=== PATIENT | male | born 1935 | race Caucasian/White ===

== ENCOUNTER 2018-08-14 10:24 | Inpatient (IN) | payer MEDICARE, MEDICAID ==
[~2018-08-14] VITALS: Ht 177.8 cm; Wt 79.6 kg
[~2018-08-14 10:24] MED LIST: HYDR-4005 PO; LISI40TA4 PO; METO100T16 PO; MINO2.5T19 GT; TEMA15CA PO; TRAZ-212 PO
[2018-08-14] MEDS ORDERED: METHYLPREDNISOLONE SOD SUCC 125 MG/2 ML VIAL IV STA (10:32)
[2018-08-14] MEDS ORDERED: ALBUTEROL (0.083%) 2.5MG/3ML NEB HHN STA (10:32)
[2018-08-14] MEDS ORDERED: IPRATROPIUM BROMIDE (0.02%) 0.5MG/2.5ML NEB HHN STA (10:32)
[2018-08-14 10:49] LABS: HEMATOCRIT. 34.9 % (42.0-52.0); HEMOGLOBIN. 12.1 g/dL (14.0-18.0); MEAN CORPUSCULAR HEMOGLOBIN 31.3 pg (28.0-32.0); MEAN CORPUSCULAR VOLUME 90.4 fL (80.0-94.0); MEAN PLATELET VOLUME 7.5 fl (7.4-10.4); PLATELET 159 x1000/uL (130-400); RED BLOOD CELL COUNT 3.86 mill/uL (4.7-6.1); RED CELL DISTRIBUTION WIDTH 14.7 % (11.6-14.6)
[2018-08-14 10:57] LABS: CHLORIDE 94 mEq/L (98-107)
[2018-08-14] MEDS ORDERED: METOPROLOL TARTRATE 5MG/5ML VIAL IV ONE (11:00)
[2018-08-14 11:31] LABS: PLATELET ESTIMATE NORMAL
[2018-08-14 11:41] LABS: BG BASE EXCESS 1.1 mmol/L (-2.0-2.0); BG CARBOXYHEMOGLOBIN 1.1 % (0.5-1.5); BG DEOXYHEMOGLOBIN 4.3 % (0.0-5.0); BG HCO3 ACT 24.5 mmol/L (22.0-26.0); BG METHEMOGLOBIN 0.1 % (0.0-1.5); BG OXYGEN SATURATION 95.6 % (92.0-98.5); BG OXYHEMOGLOBIN 94.5 % (94.0-97.0); BG PCO2 35.2 mmHg (35.0-45.0); BG PH 7.461 (7.350-7.450); BG PO2 78.3 mmHg (75.0-100.0); BG SAMPLE SITE RIGHT RADIAL; BG TOTAL HEMOGLOBIN 12.6 g/dL (12.0-18.0)
[2018-08-14] MEDS ORDERED: PIPERACILLIN/TAZOBACTAM 3.375GM/50ML PREMIX IV ONE (12:15)
[2018-08-14] MEDS ORDERED: PIPERACILLIN/TAZ 3.375G PREMIX 50 ML IV ONE (12:30)
[2018-08-14 15:43] VITALS: BP 122/72
[2018-08-14 16:00] VITALS: BP 138/78
[2018-08-14] MEDS ORDERED: DEXTROSE 50% WATER 50ML SYRINGE IV PRN ×2 (16:45)
[2018-08-14] MEDS ORDERED: IPRATROPIUM/ALBUTEROL 0.5-3(2.5)MG/3ML NEB HHN PRN (16:45)
[2018-08-14] MEDS: BLOOD SUGAR DIAGNOSTIC STRIP TEST SCH ×2 (17:19→20:24)
[2018-08-14] MEDS: ENOXAPARIN 40MG/0.4ML SYR SUBCUT SCH (17:23)
[2018-08-14] MEDS: INSULIN LISPRO 100 UNITS/ML SUBCUT SCH ×2 (17:23→20:25)
[2018-08-14 18:00] VITALS: BP 112/57
[2018-08-14 20:00] VITALS: BP 98/49
[2018-08-14] MEDS: IPRATROPIUM/ALBUTEROL 0.5-3(2.5)MG/3ML NEB HHN SCH ×2 (20:11→23:57)
[2018-08-14] MEDS ORDERED: HYDROCODONE/ACETAMINOPHEN 5/325MG TABLET PO PRN (20:15)
[2018-08-14] MEDS: PIPERACILLIN/TAZ 2.25G PREMIX 50 ML IV SCH (20:24)
[2018-08-14] MEDS: SODIUM CHLORIDE 0.9% 1,000 ML IV SCH (20:26)
[2018-08-14] MEDS: CARVEDILOL 6.25 MG TABLET PO SCH (20:32)
[2018-08-14 21:47] LABS: INR 1.4; PARTIAL THROMBOPLASTIN TIME 44.1 sec (23.4-31.0); PROTHROMBIN TIME 13.9 sec (9.1-11.1)
[2018-08-14 22:00] VITALS: BP 100/50
[2018-08-14] MEDS ORDERED: DILTIAZEM HCL 60MG TABLET PO SCH (22:00)
[2018-08-15] VITALS (26 sets, daily range): BP systolic 76–118; BP diastolic 25–75
[2018-08-15] MEDS: IPRATROPIUM/ALBUTEROL 0.5-3(2.5)MG/3ML NEB HHN SCH ×5 (02:05→15:10)
[2018-08-15] MEDS: PIPERACILLIN/TAZ 2.25G PREMIX 50 ML IV SCH ×2 (03:19→08:01)
[2018-08-15] MEDS: BLOOD SUGAR DIAGNOSTIC STRIP TEST SCH ×4 (05:42→21:20)
[2018-08-15 05:46] LABS: CHLORIDE 99 mEq/L (98-107)
[2018-08-15 06:01] LABS: LDL CHOLESTEROL 48 mg/dL (5-100)
[2018-08-15 06:02] LABS: HDL CHOLESTEROL 33 mg/dL (40-59)
[2018-08-15 06:11] LABS: HEMATOCRIT. 29.3 % (42.0-52.0); HEMOGLOBIN. 10.4 g/dL (14.0-18.0); MEAN CORPUSCULAR HEMOGLOBIN 31.9 pg (28.0-32.0); MEAN CORPUSCULAR VOLUME 90.3 fL (80.0-94.0); PLATELET 131 x1000/uL (130-400); RED BLOOD CELL COUNT 3.24 mill/uL (4.7-6.1); RED CELL DISTRIBUTION WIDTH 14.7 % (11.6-14.6)
[2018-08-15] MEDS: INSULIN LISPRO 100 UNITS/ML SUBCUT SCH ×4 (07:57→21:22)
[2018-08-15] MEDS: CARVEDILOL 6.25 MG TABLET PO SCH (08:01)
[2018-08-15] MEDS: ASPIRIN 81MG TABLET PO SCH (08:01)
[2018-08-15] MEDS ORDERED: VANCOMYCIN 1,750 MG in DEXT 5% WATER 250 ML IV SCH (13:00)
[2018-08-15] MEDS: DILTIAZEM HCL 60MG TABLET PO SCH ×3 (13:14→22:00)
[2018-08-15 13:26] LABS: PLATELET ESTIMATE NORMAL
[2018-08-15] MEDS ORDERED: DIGOXIN 500MCG/2ML AMP IV NR (14:55)
[2018-08-15] MEDS ORDERED: DIGOXIN 500MCG/2ML AMP ONE (15:05)
[2018-08-15 15:06] LABS: BG BASE EXCESS -3.7 mmol/L (-2.0-2.0); BG CARBOXYHEMOGLOBIN 0.6 % (0.5-1.5); BG DEOXYHEMOGLOBIN 2.6 % (0.0-5.0); BG HCO3 ACT 23.6 mmol/L (22.0-26.0); BG METHEMOGLOBIN 0.1 % (0.0-1.5); BG OXYGEN SATURATION 97.4 % (92.0-98.5); BG OXYHEMOGLOBIN 96.7 % (94.0-97.0); BG PCO2 52.3 mmHg (35.0-45.0); BG PH 7.273 (7.350-7.450); BG PO2 119.6 mmHg (75.0-100.0); BG SAMPLE SITE RIGHT RADIAL; BG TOTAL HEMOGLOBIN 12.7 g/dL (12.0-18.0)
[2018-08-15 16:18] LABS: BG BASE EXCESS 1.8 mmol/L (-2.0-2.0); BG BILEVEL POS AIRWAY PRESSURE 15/5; BG DEOXYHEMOGLOBIN 1.2 % (0.0-5.0); BG HCO3 ACT 25.1 mmol/L (22.0-26.0); BG METHEMOGLOBIN 0.1 % (0.0-1.5); BG OXYGEN SATURATION 98.8 % (92.0-98.5); BG OXYHEMOGLOBIN 98.7 % (94.0-97.0); BG PCO2 34.9 mmHg (35.0-45.0); BG PH 7.474 (7.350-7.450); BG PO2 384.7 mmHg (75.0-100.0); BG SAMPLE SITE RIGHT RADIAL; BG TOTAL HEMOGLOBIN 12.4 g/dL (12.0-18.0); BG VENT MODE MASK - BIPAP; BG VENT RATE 16 set
[2018-08-15] MEDS ORDERED: SODIUM CHLORIDE 0.9% 250 ML IV NR (16:30)
[2018-08-15] MEDS ORDERED: PHENYLEPHRINE 20 MG in DEXT 5% WATER 498 ML IV PRN (16:30)
[2018-08-15] MEDS: PIPERACILLIN/TAZ 3.375G PREMIX 50 ML IV SCH ×2 (16:43→21:21)
[2018-08-15] MEDS: ENOXAPARIN 40MG/0.4ML SYR SUBCUT SCH (16:48)
[2018-08-15] MEDS ORDERED: DICY10CA88 MT (17:10)
[2018-08-15] MEDS ORDERED: GUAI400T78 MT (17:10)
[2018-08-15] MEDS ORDERED: SPIR25TA6 MT (17:10)
[2018-08-15] MEDS ORDERED: NYST15PO4 TP (17:10)
[2018-08-15] MEDS ORDERED: ESCI5TAB10 MT (17:10)
[2018-08-15] MEDS ORDERED: ALBU4TAB6 MT (17:10)
[2018-08-15] MEDS ORDERED: MULT-1203 MT (17:10)
[2018-08-15] MEDS ORDERED: DILT240C49 MT (17:10)
[2018-08-15] MEDS ORDERED: FLUT1DIS6 IH (17:10)
[2018-08-15] MEDS ORDERED: TAMS0.4C31 PO (17:10)
[2018-08-15] MEDS ORDERED: LOSA50TA20 MT (17:10)
[2018-08-15] MEDS ORDERED: ALBU90AE INH (17:10)
[2018-08-15] MEDS ORDERED: ASPI-1159 PO (17:10)
[2018-08-15] MEDS ORDERED: FURO40TA5 MT (17:10)
[2018-08-15] MEDS: SODIUM CHLORIDE 0.9% 1,000 ML IV SCH (17:51)
[2018-08-15] MEDS: DIGOXIN 125MCG TABLET PO SCH (17:51)
[2018-08-15] MEDS ORDERED: TAMSULOSIN HCL 0.4MG SR CAPSULE PO SCH (21:00)
[2018-08-16] VITALS (43 sets, daily range): BP systolic 36–158; BP diastolic 23–92
[2018-08-16] MEDS: PIPERACILLIN/TAZ 3.375G PREMIX 50 ML IV SCH ×2 (04:27→08:51)
[2018-08-16 05:12] LABS: HEMATOCRIT. 29.5 % (42.0-52.0); HEMOGLOBIN. 10.1 g/dL (14.0-18.0); MEAN CORPUSCULAR HEMOGLOBIN 31.2 pg (28.0-32.0); MEAN CORPUSCULAR VOLUME 91.5 fL (80.0-94.0); MEAN PLATELET VOLUME 8.2 fl (7.4-10.4); PLATELET 110 x1000/uL (130-400); RED BLOOD CELL COUNT 3.23 mill/uL (4.7-6.1); RED CELL DISTRIBUTION WIDTH 14.7 % (11.6-14.6)
[2018-08-16 05:21] LABS: CHLORIDE 100 mEq/L (98-107)
[2018-08-16] MEDS: DILTIAZEM HCL 60MG TABLET PO SCH ×2 (06:00→06:42)
[2018-08-16] MEDS ORDERED: VANCOMYCIN 1 G PREMIX 200 ML IV SCH (06:00)
[2018-08-16 06:35] LABS: PLATELET ESTIMATE SLIGHTLY DECREASED
[2018-08-16] MEDS: INSULIN LISPRO 100 UNITS/ML SUBCUT SCH ×4 (08:20→21:26)
[2018-08-16] MEDS: BLOOD SUGAR DIAGNOSTIC STRIP TEST SCH ×4 (08:28→21:15)
[2018-08-16] MEDS: ASPIRIN 81MG TABLET PO SCH (08:40)
[2018-08-16] MEDS ORDERED: METHYLPREDNISOLONE SOD SUCC 125 MG/2 ML VIAL IV SCH (09:00)
[2018-08-16] MEDS: IPRATROPIUM/ALBUTEROL 0.5-3(2.5)MG/3ML NEB HHN SCH ×4 (09:08→21:01)
[2018-08-16] MEDS: DILTIAZEM HCL 30MG TABLET PO SCH ×3 (14:47→21:18)
[2018-08-16] MEDS: METHYLPREDNISOLONE SOD SUCC 40 MG/ML VIAL IV SCH ×2 (14:50→21:16)
[2018-08-16 15:17] LABS: BG BASE EXCESS 1.7 mmol/L (-2.0-2.0); BG CARBOXYHEMOGLOBIN 0.2 % (0.5-1.5); BG DEOXYHEMOGLOBIN 2.7 % (0.0-5.0); BG FRACTION INSPIRED OXYGEN 28; BG METHEMOGLOBIN 0.1 % (0.0-1.5); BG OXYGEN SATURATION 97.3 % (92.0-98.5); BG PCO2 39.9 mmHg (35.0-45.0); BG PH 7.432 (7.350-7.450); BG PO2 101.3 mmHg (75.0-100.0); BG SAMPLE SITE RIGHT BRACHIAL; BG TOTAL HEMOGLOBIN 11.3 g/dL (12.0-18.0); BG VENT MODE NASAL CANNULA
[2018-08-16] MEDS: LORATADINE 10MG TABLET PO SCH (16:33)
[2018-08-16] MEDS: FAMOTIDINE 20MG/2ML VIAL IV SCH (16:33)
[2018-08-16] MEDS: BUDESONIDE 0.5MG/2ML NEB HHN SCH (16:45)
[2018-08-16] MEDS: DIGOXIN 125MCG TABLET PO SCH (17:16)
[2018-08-16] MEDS: MONTELUKAST SODIUM 10MG TABLET PO SCH (17:17)
[2018-08-16] MEDS ORDERED: ENOXAPARIN 80MG/0.8ML SYR SUBCUT SCH (17:30)
[2018-08-16 19:37] LABS: INR 1.1; PROTHROMBIN TIME 11.4 sec (9.1-11.1)
[2018-08-16 19:37] LABS: CLARITY URINE CLEAR (CLEAR); COLOR URINE YELLOW (YELLOW); KETONES URINE NEGATIVE (NEGATIVE); LEUKOCYTE ESTERASE URINE NEGATIVE (NEGATIVE); NITRITE URINE NEGATIVE (NEGATIVE); OCCULT BLOOD URINE NEGATIVE (NEGATIVE); PROTEIN URINE NEGATIVE (NEGATIVE); SPECIFIC GRAVITY URINE 1.016 (1.005-1.030)
[2018-08-16 21:16] LABS: *BENZODIAZEPINES SCREEN URINE NEGATIVE (NEGATIVE); *COCAINE SCREEN URINE NEGATIVE (NEGATIVE)
[2018-08-16 21:17] LABS: *AMPHETAMINES SCREEN URINE NEGATIVE (NEGATIVE); *BARBITURATES SCREEN URINE NEGATIVE (NEGATIVE); CANNABINOID URINE SCREEN NEGATIVE (NEGATIVE); METHADONE URINE SCREEN NEGATIVE (NEGATIVE); OPIATES URINE SCREEN NEGATIVE (NEGATIVE); PHENCYCLIDINE URINE SCREEN NEGATIVE (NEGATIVE)
[2018-08-17] VITALS (11 sets, daily range): BP systolic 99–139; BP diastolic 51–83
[2018-08-17] MEDS: IPRATROPIUM/ALBUTEROL 0.5-3(2.5)MG/3ML NEB HHN SCH ×7 (00:30→23:45)
[2018-08-17] MEDS: BUDESONIDE 0.5MG/2ML NEB HHN SCH ×3 (00:41→19:56)
[2018-08-17] MEDS: METHYLPREDNISOLONE SOD SUCC 40 MG/ML VIAL IV SCH ×3 (06:10→21:03)
[2018-08-17] MEDS: DILTIAZEM HCL 30MG TABLET PO SCH ×3 (06:11→21:03)
[2018-08-17 06:37] LABS: HEMATOCRIT. 30.6 % (42.0-52.0); HEMOGLOBIN. 10.4 g/dL (14.0-18.0); MEAN CORPUSCULAR VOLUME 91.4 fL (80.0-94.0); MEAN PLATELET VOLUME 8.2 fl (7.4-10.4); PLATELET 116 x1000/uL (130-400); RED BLOOD CELL COUNT 3.35 mill/uL (4.7-6.1); RED CELL DISTRIBUTION WIDTH 14.5 % (11.6-14.6)
[2018-08-17] MEDS: FAMOTIDINE 20MG/2ML VIAL IV SCH (08:02)
[2018-08-17] MEDS: ASPIRIN 81MG TABLET PO SCH (08:02)
[2018-08-17] MEDS: LORATADINE 10MG TABLET PO SCH (08:02)
[2018-08-17] MEDS: INSULIN LISPRO 100 UNITS/ML SUBCUT SCH ×4 (08:03→20:57)
[2018-08-17] MEDS: BLOOD SUGAR DIAGNOSTIC STRIP TEST SCH ×4 (08:03→20:57)
[2018-08-17 13:57] LABS: PLATELET ESTIMATE SLIGHTLY DECREASED
[2018-08-17] MEDS ORDERED: CEFTRIAXONE 2 G PREMIX 50 ML IV SCH (16:00)
[2018-08-17] MEDS: MONTELUKAST SODIUM 10MG TABLET PO SCH (16:26)
[2018-08-17] MEDS ORDERED: INSULIN GLARGINE UD 100 UNITS/ML SYR SUBCUT NR ×2 (17:30→23:30)
[2018-08-17] MEDS: DIGOXIN 125MCG TABLET PO SCH (18:24)
[2018-08-17] MEDS: GUAIFENESIN 600MG ER TABLET PO SCH (20:43)
[2018-08-17] MEDS: ACETYLCYSTEINE 100MG/ML 10% VIAL 4ML INH SCH (23:45)
[2018-08-18] VITALS (9 sets, daily range): BP systolic 93–143; BP diastolic 46–85
[2018-08-18] MEDS: IPRATROPIUM/ALBUTEROL 0.5-3(2.5)MG/3ML NEB HHN SCH ×5 (03:03→21:29)
[2018-08-18] MEDS: DILTIAZEM HCL 30MG TABLET PO SCH ×3 (06:06→21:59)
[2018-08-18] MEDS: METHYLPREDNISOLONE SOD SUCC 40 MG/ML VIAL IV SCH ×2 (06:06→21:53)
[2018-08-18 07:04] LABS: HEMATOCRIT. 31.6 % (42.0-52.0); HEMOGLOBIN. 10.6 g/dL (14.0-18.0); MEAN CORPUSCULAR HEMOGLOBIN 30.5 pg (28.0-32.0); MEAN CORPUSCULAR VOLUME 91.4 fL (80.0-94.0); MEAN PLATELET VOLUME 8.2 fl (7.4-10.4); PLATELET 119 x1000/uL (130-400); RED BLOOD CELL COUNT 3.46 mill/uL (4.7-6.1); RED CELL DISTRIBUTION WIDTH 14.8 % (11.6-14.6)
[2018-08-18 07:35] LABS: CHLORIDE 102 mEq/L (98-107)
[2018-08-18 07:38] LABS: PLATELET ESTIMATE SLIGHTLY DECREASED
[2018-08-18] MEDS: BLOOD SUGAR DIAGNOSTIC STRIP TEST SCH ×4 (08:21→21:55)
[2018-08-18] MEDS: ASPIRIN 81MG TABLET PO SCH (08:43)
[2018-08-18] MEDS: FAMOTIDINE 20MG/2ML VIAL IV SCH (08:43)
[2018-08-18] MEDS: LORATADINE 10MG TABLET PO SCH (08:43)
[2018-08-18] MEDS: GUAIFENESIN 600MG ER TABLET PO SCH ×2 (08:43→21:53)
[2018-08-18] MEDS: INSULIN LISPRO 100 UNITS/ML SUBCUT SCH ×4 (08:44→21:55)
[2018-08-18] MEDS: ACETYLCYSTEINE 100MG/ML 10% VIAL 4ML INH SCH ×2 (09:21→16:45)
[2018-08-18] MEDS: BUDESONIDE 0.5MG/2ML NEB HHN SCH ×2 (09:21→21:28)
[2018-08-18] MEDS ORDERED: LIDOCAINE HCL 1% 20ML VIAL (Pyxis) INJ ONE (09:34)
[2018-08-18] MEDS ORDERED: CEFTRIAXONE 2 G in DEXTROSE 5% WATER 50 ML IV SCH (17:00)
[2018-08-18] MEDS: MONTELUKAST SODIUM 10MG TABLET PO SCH (17:06)
[2018-08-18] MEDS: CEFTRIAXONE 2 G in DEXTROSE 5% WATER 50 ML IV SCH (17:42)
[2018-08-18] MEDS: DIGOXIN 125MCG TABLET PO SCH (18:42)
[2018-08-18] MEDS: INSULIN GLARGINE UD 100 UNITS/ML SYR SUBCUT SCH (21:54)
[2018-08-19] VITALS: BP 98/60
[2018-08-19] MEDS: ACETYLCYSTEINE 100MG/ML 10% VIAL 4ML INH SCH ×4 (00:25→23:59)
[2018-08-19] MEDS: IPRATROPIUM/ALBUTEROL 0.5-3(2.5)MG/3ML NEB HHN SCH ×7 (00:26→23:58)
[2018-08-19] MEDS: DILTIAZEM HCL 30MG TABLET PO SCH ×3 (05:58→18:00)
[2018-08-19 07:35] LABS: HEMATOCRIT. 30.5 % (42.0-52.0); HEMOGLOBIN. 10.3 g/dL (14.0-18.0); MEAN CORPUSCULAR VOLUME 91.7 fL (80.0-94.0); PLATELET 109 x1000/uL (130-400); RED BLOOD CELL COUNT 3.32 mill/uL (4.7-6.1); RED CELL DISTRIBUTION WIDTH 14.5 % (11.6-14.6)
[2018-08-19] MEDS: BLOOD SUGAR DIAGNOSTIC STRIP TEST SCH ×4 (07:54→21:43)
[2018-08-19 08:00] VITALS: BP 111/49
[2018-08-19] MEDS: BUDESONIDE 0.5MG/2ML NEB HHN SCH (08:29)
[2018-08-19] MEDS: METHYLPREDNISOLONE SOD SUCC 40 MG/ML VIAL IV SCH ×2 (08:36→21:43)
[2018-08-19] MEDS: FAMOTIDINE 20MG/2ML VIAL IV SCH (08:37)
[2018-08-19] MEDS: ASPIRIN 81MG TABLET PO SCH (08:37)
[2018-08-19] MEDS: LORATADINE 10MG TABLET PO SCH (08:37)
[2018-08-19] MEDS: GUAIFENESIN 600MG ER TABLET PO SCH ×2 (08:37→21:43)
[2018-08-19] MEDS: INSULIN LISPRO 100 UNITS/ML SUBCUT SCH ×4 (08:38→22:24)
[2018-08-19 10:03] LABS: CHLORIDE 103 mEq/L (98-107)
[2018-08-19 12:00] VITALS: BP 89/53
[2018-08-19 13:26] LABS: PLATELET ESTIMATE DECREASED
[2018-08-19 14:20] LABS: BG BASE EXCESS 2.3 mmol/L (-2.0-2.0); BG CARBOXYHEMOGLOBIN 0.2 % (0.5-1.5); BG DEOXYHEMOGLOBIN 2.7 % (0.0-5.0); BG FRACTION INSPIRED OXYGEN 28; BG HCO3 ACT 25.8 mmol/L (22.0-26.0); BG METHEMOGLOBIN 0.2 % (0.0-1.5); BG OXYGEN SATURATION 97.3 % (92.0-98.5); BG OXYHEMOGLOBIN 96.9 % (94.0-97.0); BG PCO2 35.9 mmHg (35.0-45.0); BG PH 7.474 (7.350-7.450); BG PO2 103.7 mmHg (75.0-100.0); BG SAMPLE SITE RIGHT RADIAL; BG TOTAL HEMOGLOBIN 11.3 g/dL (12.0-18.0); BG VENT MODE NASAL CANNULA
[2018-08-19 16:00] VITALS: BP 100/57
[2018-08-19] MEDS: MONTELUKAST SODIUM 10MG TABLET PO SCH (18:27)
[2018-08-19] MEDS: CEFTRIAXONE 2 G in DEXTROSE 5% WATER 50 ML IV SCH (18:53)
[2018-08-19] MEDS: DIGOXIN 125MCG TABLET PO SCH (18:53)
[2018-08-19 20:00] VITALS: BP 88/50
[2018-08-19 22:00] VITALS: BP 93/51
[2018-08-19] MEDS: INSULIN GLARGINE UD 100 UNITS/ML SYR SUBCUT SCH (22:23)
[2018-08-20] VITALS (8 sets, daily range): BP systolic 100–139; BP diastolic 47–75
[2018-08-20] MEDS: IPRATROPIUM/ALBUTEROL 0.5-3(2.5)MG/3ML NEB HHN SCH ×6 (04:29→23:58)
[2018-08-20] MEDS: DILTIAZEM HCL 30MG TABLET PO SCH ×5 (06:00→17:56)
[2018-08-20] MEDS: BLOOD SUGAR DIAGNOSTIC STRIP TEST SCH ×4 (07:52→21:00)
[2018-08-20] MEDS: INSULIN LISPRO 100 UNITS/ML SUBCUT SCH ×4 (08:00→21:00)
[2018-08-20] MEDS: ACETYLCYSTEINE 100MG/ML 10% VIAL 4ML INH SCH ×3 (08:42→20:24)
[2018-08-20] MEDS: METHYLPREDNISOLONE SOD SUCC 40 MG/ML VIAL IV SCH (09:08)
[2018-08-20] MEDS: ASPIRIN 81MG TABLET PO SCH (09:08)
[2018-08-20] MEDS: LORATADINE 10MG TABLET PO SCH (09:08)
[2018-08-20] MEDS: GUAIFENESIN 600MG ER TABLET PO SCH ×2 (09:08→21:00)
[2018-08-20] MEDS: FAMOTIDINE 20MG/2ML VIAL IV SCH (09:08)
[2018-08-20] MEDS: ENOXAPARIN 40MG/0.4ML SYR SUBCUT SCH (09:45)
[2018-08-20 10:13] LABS: HEMATOCRIT. 28.7 % (42.0-52.0); HEMOGLOBIN. 9.7 g/dL (14.0-18.0); MEAN CORPUSCULAR HEMOGLOBIN 31.3 pg (28.0-32.0); MEAN CORPUSCULAR VOLUME 92.8 fL (80.0-94.0); MEAN PLATELET VOLUME 8.1 fl (7.4-10.4); PLATELET 111 x1000/uL (130-400); RED CELL DISTRIBUTION WIDTH 14.7 % (11.6-14.6)
[2018-08-20 10:17] LABS: CHLORIDE 111 mEq/L (98-107)
[2018-08-20 10:32] LABS: PLATELET ESTIMATE SLIGHTLY DECREASED
[2018-08-20] MEDS: CEFTRIAXONE 2 G in DEXTROSE 5% WATER 50 ML IV SCH (17:53)
[2018-08-20] MEDS: DIGOXIN 125MCG TABLET PO SCH (17:54)
[2018-08-20] MEDS: MONTELUKAST SODIUM 10MG TABLET PO SCH (17:54)
[2018-08-20] MEDS: INSULIN GLARGINE UD 100 UNITS/ML SYR SUBCUT SCH (22:00)
[2018-08-21] VITALS (16 sets, daily range): BP systolic 86–137; BP diastolic 42–67
[2018-08-21] MEDS: ACETYLCYSTEINE 100MG/ML 10% VIAL 4ML INH SCH ×2 (01:30→12:48)
[2018-08-21] MEDS: IPRATROPIUM/ALBUTEROL 0.5-3(2.5)MG/3ML NEB HHN SCH ×5 (04:18→21:05)
[2018-08-21] MEDS: DILTIAZEM HCL 30MG TABLET PO SCH ×4 (05:21→21:31)
[2018-08-21 07:24] LABS: CHLORIDE 105 mEq/L (98-107)
[2018-08-21] MEDS: BLOOD SUGAR DIAGNOSTIC STRIP TEST SCH ×4 (07:30→21:35)
[2018-08-21 07:53] LABS: HEMATOCRIT 32.9 % (42.0-52.0); MEAN CORPUSCULAR HEMOGLOBIN 31.1 pg (28.0-32.0); MEAN CORPUSCULAR VOLUME 93.3 fL (80.0-94.0); PLATELET 129 x1000/uL (130-400); RED BLOOD CELL COUNT 3.52 mill/uL (4.7-6.1)
[2018-08-21] MEDS: INSULIN LISPRO 100 UNITS/ML SUBCUT SCH ×4 (08:00→22:27)
[2018-08-21] MEDS: ASPIRIN 81MG TABLET PO SCH (09:03)
[2018-08-21] MEDS: GUAIFENESIN 600MG ER TABLET PO SCH ×2 (09:03→21:31)
[2018-08-21] MEDS: METHYLPREDNISOLONE SOD SUCC 40 MG/ML VIAL IV SCH (09:03)
[2018-08-21] MEDS: FAMOTIDINE 20MG/2ML VIAL IV SCH (09:09)
[2018-08-21] MEDS: LORATADINE 10MG TABLET PO SCH (09:09)
[2018-08-21] MEDS: ENOXAPARIN 40MG/0.4ML SYR SUBCUT SCH (09:25)
[2018-08-21] MEDS ORDERED: PNEUMOCOCCAL 23-VAL P-SAC VAC 0.5 ML IM ONE (13:30)
[2018-08-21] MEDS: MONTELUKAST SODIUM 10MG TABLET PO SCH (17:25)
[2018-08-21] MEDS: DIGOXIN 125MCG TABLET PO SCH (17:25)
[2018-08-21] MEDS: CEFTRIAXONE 2 G in DEXTROSE 5% WATER 50 ML IV SCH (20:54)
[2018-08-21] MEDS: INSULIN GLARGINE UD 100 UNITS/ML SYR SUBCUT SCH (22:27)
[2018-08-22] VITALS: BP 106/62
[2018-08-22] MEDS: IPRATROPIUM/ALBUTEROL 0.5-3(2.5)MG/3ML NEB HHN SCH ×5 (01:29→20:11)
[2018-08-22 04:00] VITALS: BP 131/58
[2018-08-22] MEDS: BLOOD SUGAR DIAGNOSTIC STRIP TEST SCH ×4 (06:54→21:57)
[2018-08-22 07:36] LABS: HEMATOCRIT 31.3 % (42.0-52.0); HEMOGLOBIN 10.7 g/dL (14.0-18.0); MEAN CORPUSCULAR HEMOGLOBIN 31.2 pg (28.0-32.0); MEAN CORPUSCULAR VOLUME 91.3 fL (80.0-94.0); PLATELET 145 x1000/uL (130-400); RED BLOOD CELL COUNT 3.43 mill/uL (4.7-6.1); RED CELL DISTRIBUTION WIDTH 15.2 % (11.6-14.6)
[2018-08-22] MEDS: INSULIN LISPRO 100 UNITS/ML SUBCUT SCH ×4 (07:50→23:30)
[2018-08-22 08:00] VITALS: BP 142/70
[2018-08-22] MEDS: ENOXAPARIN 40MG/0.4ML SYR SUBCUT SCH (08:33)
[2018-08-22] MEDS: LORATADINE 10MG TABLET PO SCH (08:34)
[2018-08-22] MEDS: FAMOTIDINE 20MG/2ML VIAL IV SCH (08:34)
[2018-08-22] MEDS: METHYLPREDNISOLONE SOD SUCC 40 MG/ML VIAL IV SCH ×2 (08:34→16:43)
[2018-08-22] MEDS: DILTIAZEM HCL 30MG TABLET PO SCH ×2 (08:34→21:00)
[2018-08-22] MEDS: ASPIRIN 81MG TABLET PO SCH (08:34)
[2018-08-22] MEDS: GUAIFENESIN 600MG ER TABLET PO SCH ×2 (08:34→21:54)
[2018-08-22 08:53] LABS: CHLORIDE 104 mEq/L (98-107)
[2018-08-22 10:58] LABS: BG BASE EXCESS 4.7 mmol/L (-2.0-2.0); BG CARBOXYHEMOGLOBIN 0.5 % (0.5-1.5); BG DEOXYHEMOGLOBIN 2.8 % (0.0-5.0); BG FRACTION INSPIRED OXYGEN 28; BG HCO3 ACT 28.8 mmol/L (22.0-26.0); BG METHEMOGLOBIN 0.1 % (0.0-1.5); BG OXYGEN SATURATION 97.2 % (92.0-98.5); BG OXYHEMOGLOBIN 96.6 % (94.0-97.0); BG PCO2 41.1 mmHg (35.0-45.0); BG PH 7.464 (7.350-7.450); BG PO2 100.2 mmHg (75.0-100.0); BG SAMPLE SITE RIGHT RADIAL; BG TOTAL HEMOGLOBIN 11.7 g/dL (12.0-18.0); BG VENT MODE NASAL CANNULA
[2018-08-22 12:00] VITALS: BP 157/68
[2018-08-22 16:00] VITALS: BP 153/55
[2018-08-22] MEDS: ACETYLCYSTEINE 100MG/ML 10% VIAL 4ML INH SCH (16:00)
[2018-08-22 16:13] LABS: BG BASE EXCESS 3.6 mmol/L (-2.0-2.0); BG CARBOXYHEMOGLOBIN 0.7 % (0.5-1.5); BG DEOXYHEMOGLOBIN 2.5 % (0.0-5.0); BG FRACTION INSPIRED OXYGEN 28; BG HCO3 ACT 27.5 mmol/L (22.0-26.0); BG METHEMOGLOBIN 0.3 % (0.0-1.5); BG OXYGEN SATURATION 97.5 % (92.0-98.5); BG OXYHEMOGLOBIN 96.5 % (94.0-97.0); BG PCO2 38.9 mmHg (35.0-45.0); BG PH 7.467 (7.350-7.450); BG SAMPLE SITE RIGHT BRACHIAL; BG TOTAL HEMOGLOBIN 11.3 g/dL (12.0-18.0); BG VENT MODE NASAL CANNULA
[2018-08-22] MEDS: MONTELUKAST SODIUM 10MG TABLET PO SCH (16:42)
[2018-08-22] MEDS: CEFTRIAXONE 2 G in DEXTROSE 5% WATER 50 ML IV SCH (17:02)
[2018-08-22] MEDS: DIGOXIN 125MCG TABLET PO SCH (17:02)
[2018-08-22 19:08] LABS: CLARITY URINE CLEAR (CLEAR); COLOR URINE YELLOW (YELLOW); KETONES URINE TRACE (NEGATIVE); LEUKOCYTE ESTERASE URINE NEGATIVE (NEGATIVE); NITRITE URINE NEGATIVE (NEGATIVE); OCCULT BLOOD URINE NEGATIVE (NEGATIVE); PH URINE 5.5 (4.5-8.0); PROTEIN URINE NEGATIVE (NEGATIVE); SPECIFIC GRAVITY URINE 1.019 (1.005-1.030); UROBILINOGEN URINE 0.2 E.U./dL (0.2-1.0)
[2018-08-22 20:00] VITALS: BP 106/41
[2018-08-22] MEDS: INSULIN GLARGINE UD 100 UNITS/ML SYR SUBCUT SCH (22:58)
[2018-08-23] VITALS: BP 107/62
[2018-08-23] MEDS: IPRATROPIUM/ALBUTEROL 0.5-3(2.5)MG/3ML NEB HHN SCH ×5 (00:34→20:34)
[2018-08-23] MEDS: ACETYLCYSTEINE 100MG/ML 10% VIAL 4ML INH SCH ×3 (00:34→20:35)
[2018-08-23 07:12] LABS: HEMATOCRIT 35.5 % (42.0-52.0); HEMOGLOBIN 11.8 g/dL (14.0-18.0); MEAN CORPUSCULAR HEMOGLOBIN 30.7 pg (28.0-32.0); MEAN CORPUSCULAR VOLUME 92.1 fL (80.0-94.0); PLATELET 143 x1000/uL (130-400); RED BLOOD CELL COUNT 3.85 mill/uL (4.7-6.1); RED CELL DISTRIBUTION WIDTH 14.8 % (11.6-14.6)
[2018-08-23 07:18] LABS: CHLORIDE 103 mEq/L (98-107)
[2018-08-23] MEDS: BLOOD SUGAR DIAGNOSTIC STRIP TEST SCH ×4 (07:20→21:37)
[2018-08-23 07:41] LABS: DIGOXIN 1.1 ng/mL (0.9-2.0)
[2018-08-23 08:00] VITALS: BP 129/75
[2018-08-23] MEDS: METHYLPREDNISOLONE SOD SUCC 40 MG/ML VIAL IV SCH ×2 (09:07→18:26)
[2018-08-23] MEDS: FAMOTIDINE 20MG/2ML VIAL IV SCH (09:07)
[2018-08-23] MEDS: DILTIAZEM HCL 30MG TABLET PO SCH ×2 (09:08→21:35)
[2018-08-23] MEDS: GUAIFENESIN 600MG ER TABLET PO SCH ×2 (09:08→21:35)
[2018-08-23] MEDS: LORATADINE 10MG TABLET PO SCH (09:08)
[2018-08-23] MEDS: ASPIRIN 81MG TABLET PO SCH (09:08)
[2018-08-23] MEDS: INSULIN LISPRO 100 UNITS/ML SUBCUT SCH ×4 (09:09→21:36)
[2018-08-23] MEDS: ENOXAPARIN 40MG/0.4ML SYR SUBCUT SCH (09:13)
[2018-08-23 10:07] LABS: BG BASE EXCESS 2.4 mmol/L (-2.0-2.0); BG BILEVEL POS AIRWAY PRESSURE 15/5; BG CARBOXYHEMOGLOBIN 0.6 % (0.5-1.5); BG DEOXYHEMOGLOBIN 1.3 % (0.0-5.0); BG FRACTION INSPIRED OXYGEN 40; BG HCO3 ACT 26.1 mmol/L (22.0-26.0); BG METHEMOGLOBIN 0.1 % (0.0-1.5); BG OXYGEN SATURATION 98.7 % (92.0-98.5); BG PCO2 36.9 mmHg (35.0-45.0); BG PH 7.467 (7.350-7.450); BG PO2 186.3 mmHg (75.0-100.0); BG SAMPLE SITE RIGHT RADIAL; BG TOTAL HEMOGLOBIN 11.6 g/dL (12.0-18.0); BG VENT MODE MASK - BIPAP; BG VENT RATE 16 set
[2018-08-23 16:00] VITALS: BP 156/62
[2018-08-23] MEDS: APIXABAN 5 MG TABLET PO SCH (18:26)
[2018-08-23] MEDS: DIGOXIN 125MCG TABLET PO SCH (18:26)
[2018-08-23] MEDS: MONTELUKAST SODIUM 10MG TABLET PO SCH (18:35)
[2018-08-23 20:00] VITALS: BP 138/57
[2018-08-23] MEDS: INSULIN GLARGINE UD 100 UNITS/ML SYR SUBCUT SCH (21:37)
[2018-08-24] VITALS: BP 154/62
[2018-08-24] MEDS: CEFTRIAXONE 2 G in DEXTROSE 5% WATER 50 ML IV SCH ×2 (00:18→18:02)
[2018-08-24] MEDS: IPRATROPIUM/ALBUTEROL 0.5-3(2.5)MG/3ML NEB HHN SCH ×6 (00:56→21:22)
[2018-08-24 04:00] VITALS: BP 118/46
[2018-08-24] MEDS: BLOOD SUGAR DIAGNOSTIC STRIP TEST SCH ×4 (06:06→21:00)
[2018-08-24] MEDS: INSULIN LISPRO 100 UNITS/ML SUBCUT SCH ×4 (06:11→23:45)
[2018-08-24 07:21] LABS: HEMATOCRIT. 32.5 % (42.0-52.0); HEMOGLOBIN. 11.1 g/dL (14.0-18.0); MEAN CORPUSCULAR HEMOGLOBIN 31.3 pg (28.0-32.0); MEAN CORPUSCULAR VOLUME 91.7 fL (80.0-94.0); MEAN PLATELET VOLUME 7.6 fl (7.4-10.4); PLATELET 135 x1000/uL (130-400); RED BLOOD CELL COUNT 3.54 mill/uL (4.7-6.1); RED CELL DISTRIBUTION WIDTH 15.4 % (11.6-14.6)
[2018-08-24 08:00] VITALS: BP 192/54
[2018-08-24] MEDS: METHYLPREDNISOLONE SOD SUCC 40 MG/ML VIAL IV SCH ×2 (10:32→18:06)
[2018-08-24] MEDS: FAMOTIDINE 20MG/2ML VIAL IV SCH (10:32)
[2018-08-24] MEDS: DILTIAZEM HCL 30MG TABLET PO SCH ×2 (10:33→21:00)
[2018-08-24] MEDS: APIXABAN 5 MG TABLET PO SCH ×2 (10:33→18:02)
[2018-08-24] MEDS: ASPIRIN 81MG TABLET PO SCH (10:33)
[2018-08-24] MEDS: GUAIFENESIN 600MG ER TABLET PO SCH ×2 (10:33→22:27)
[2018-08-24] MEDS: LORATADINE 10MG TABLET PO SCH (10:33)
[2018-08-24 11:15] LABS: BG BASE EXCESS 2.5 mmol/L (-2.0-2.0); BG CARBOXYHEMOGLOBIN 0.6 % (0.5-1.5); BG DEOXYHEMOGLOBIN 3.2 % (0.0-5.0); BG HCO3 ACT 26.1 mmol/L (22.0-26.0); BG OXYGEN SATURATION 96.8 % (92.0-98.5); BG OXYHEMOGLOBIN 96.2 % (94.0-97.0); BG PCO2 36.6 mmHg (35.0-45.0); BG PH 7.471 (7.350-7.450); BG PO2 95.4 mmHg (75.0-100.0); BG SAMPLE SITE RIGHT RADIAL; BG TOTAL HEMOGLOBIN 11.3 g/dL (12.0-18.0); BG VENT MODE NASAL CANNULA
[2018-08-24 12:00] VITALS: BP 124/56
[2018-08-24 13:11] LABS: PLATELET ESTIMATE NORMAL
[2018-08-24 14:59] LABS: CHLORIDE 105 mEq/L (98-107)
[2018-08-24 16:00] VITALS: BP 151/66
[2018-08-24] MEDS: DIGOXIN 125MCG TABLET PO SCH (18:02)
[2018-08-24] MEDS: MONTELUKAST SODIUM 10MG TABLET PO SCH (18:02)
[2018-08-24 21:00] VITALS: BP 154/63
[2018-08-24] MEDS: INSULIN GLARGINE UD 100 UNITS/ML SYR SUBCUT SCH (23:46)
[2018-08-25] VITALS: BP 157/55
[2018-08-25] MEDS: IPRATROPIUM/ALBUTEROL 0.5-3(2.5)MG/3ML NEB HHN SCH ×6 (00:54→21:09)
[2018-08-25 04:00] VITALS: BP 160/43
[2018-08-25] MEDS: BLOOD SUGAR DIAGNOSTIC STRIP TEST SCH ×4 (06:45→21:38)
[2018-08-25 08:00] VITALS: BP 119/71
[2018-08-25 08:00] LABS: HEMATOCRIT. 30.9 % (42.0-52.0); HEMOGLOBIN. 10.7 g/dL (14.0-18.0); MEAN CORPUSCULAR HEMOGLOBIN 31.7 pg (28.0-32.0); MEAN PLATELET VOLUME 7.5 fl (7.4-10.4); PLATELET 126 x1000/uL (130-400); RED BLOOD CELL COUNT 3.36 mill/uL (4.7-6.1)
[2018-08-25] MEDS: INSULIN LISPRO 100 UNITS/ML SUBCUT SCH ×4 (08:00→21:48)
[2018-08-25] MEDS: DILTIAZEM HCL 30MG TABLET PO SCH ×2 (10:13→21:00)
[2018-08-25] MEDS: LORATADINE 10MG TABLET PO SCH (10:13)
[2018-08-25] MEDS: ASPIRIN 81MG TABLET PO SCH (10:14)
[2018-08-25] MEDS: FAMOTIDINE 20MG/2ML VIAL IV SCH (10:14)
[2018-08-25] MEDS: GUAIFENESIN 600MG ER TABLET PO SCH ×2 (10:14→21:37)
[2018-08-25] MEDS: APIXABAN 5 MG TABLET PO SCH ×2 (10:14→17:29)
[2018-08-25 10:30] LABS: CHLORIDE 104 mEq/L (98-107)
[2018-08-25] MEDS: METHYLPREDNISOLONE SOD SUCC 40 MG/ML VIAL IV SCH ×2 (11:02→17:29)
[2018-08-25 12:00] VITALS: BP 95/56
[2018-08-25 16:00] VITALS: BP 105/60
[2018-08-25] MEDS: MONTELUKAST SODIUM 10MG TABLET PO SCH (17:29)
[2018-08-25] MEDS: DIGOXIN 125MCG TABLET PO SCH (17:29)
[2018-08-25] MEDS: CEFTRIAXONE 2 G in DEXTROSE 5% WATER 50 ML IV SCH (18:23)
[2018-08-25 20:00] VITALS: BP 98/67
[2018-08-25 20:12] LABS: PLATELET ESTIMATE DECREASED
[2018-08-25] MEDS: INSULIN GLARGINE UD 100 UNITS/ML SYR SUBCUT SCH (21:49)
[2018-08-26] VITALS: BP 116/75
[2018-08-26] MEDS: IPRATROPIUM/ALBUTEROL 0.5-3(2.5)MG/3ML NEB HHN SCH ×6 (00:50→20:52)
[2018-08-26 04:00] VITALS: BP 122/99
[2018-08-26] MEDS: BLOOD SUGAR DIAGNOSTIC STRIP TEST SCH ×4 (07:03→21:13)
[2018-08-26] MEDS: INSULIN LISPRO 100 UNITS/ML SUBCUT SCH ×4 (07:13→21:53)
[2018-08-26 08:00] VITALS: BP 117/71
[2018-08-26 08:01] LABS: HEMATOCRIT 35.6 % (42.0-52.0); HEMOGLOBIN 11.9 g/dL (14.0-18.0); MEAN CORPUSCULAR VOLUME 92.5 fL (80.0-94.0); PLATELET 138 x1000/uL (130-400); RED BLOOD CELL COUNT 3.85 mill/uL (4.7-6.1); RED CELL DISTRIBUTION WIDTH 15.3 % (11.6-14.6)
[2018-08-26 08:08] LABS: CHLORIDE 100 mEq/L (98-107)
[2018-08-26 08:23] LABS: BG BASE EXCESS 2.8 mmol/L (-2.0-2.0); BG CARBOXYHEMOGLOBIN 0.9 % (0.5-1.5); BG DEOXYHEMOGLOBIN 3.5 % (0.0-5.0); BG FRACTION INSPIRED OXYGEN 28; BG HCO3 ACT 25.8 mmol/L (22.0-26.0); BG METHEMOGLOBIN 0.3 % (0.0-1.5); BG OXYGEN SATURATION 96.5 % (92.0-98.5); BG OXYHEMOGLOBIN 95.3 % (94.0-97.0); BG PCO2 33.9 mmHg (35.0-45.0); BG PH 7.499 (7.350-7.450); BG PO2 86.3 mmHg (75.0-100.0); BG SAMPLE SITE RIGHT RADIAL; BG TOTAL HEMOGLOBIN 11.5 g/dL (12.0-18.0); BG VENT MODE NASAL CANNULA
[2018-08-26] MEDS: FAMOTIDINE 20MG/2ML VIAL IV SCH (09:04)
[2018-08-26] MEDS: APIXABAN 5 MG TABLET PO SCH ×2 (09:05→17:40)
[2018-08-26] MEDS: GUAIFENESIN 600MG ER TABLET PO SCH ×2 (09:05→21:13)
[2018-08-26] MEDS: LORATADINE 10MG TABLET PO SCH (09:05)
[2018-08-26] MEDS: DILTIAZEM HCL 30MG TABLET PO SCH ×2 (09:06→21:13)
[2018-08-26] MEDS: ASPIRIN 81MG TABLET PO SCH (09:06)
[2018-08-26] MEDS: METHYLPREDNISOLONE SOD SUCC 40 MG/ML VIAL IV SCH ×2 (10:31→17:40)
[2018-08-26 12:00] VITALS: BP 113/58
[2018-08-26 16:00] VITALS: BP 110/57
[2018-08-26] MEDS: CEFTRIAXONE 2 G in DEXTROSE 5% WATER 50 ML IV SCH (17:40)
[2018-08-26] MEDS: MONTELUKAST SODIUM 10MG TABLET PO SCH (17:40)
[2018-08-26] MEDS: DIGOXIN 125MCG TABLET PO SCH (17:40)
[2018-08-26 20:00] VITALS: BP 115/62
[2018-08-26] MEDS: INSULIN GLARGINE UD 100 UNITS/ML SYR SUBCUT SCH (21:53)
[2018-08-27] VITALS: BP 104/56
[2018-08-27] MEDS: IPRATROPIUM/ALBUTEROL 0.5-3(2.5)MG/3ML NEB HHN SCH ×6 (00:08→20:07)
[2018-08-27 04:00] VITALS: BP 110/49
[2018-08-27] MEDS: BLOOD SUGAR DIAGNOSTIC STRIP TEST SCH ×4 (06:31→22:00)
[2018-08-27] MEDS: INSULIN LISPRO 100 UNITS/ML SUBCUT SCH ×4 (06:33→22:01)
[2018-08-27 07:15] LABS: HEMATOCRIT 33.1 % (42.0-52.0); HEMOGLOBIN 11.2 g/dL (14.0-18.0); MEAN CORPUSCULAR HEMOGLOBIN 31.2 pg (28.0-32.0); MEAN CORPUSCULAR VOLUME 92.3 fL (80.0-94.0); PLATELET 126 x1000/uL (130-400); RED BLOOD CELL COUNT 3.59 mill/uL (4.7-6.1)
[2018-08-27 08:00] VITALS: BP 111/58
[2018-08-27] MEDS: METHYLPREDNISOLONE SOD SUCC 40 MG/ML VIAL IV SCH (08:38)
[2018-08-27] MEDS: FAMOTIDINE 20MG/2ML VIAL IV SCH (08:38)
[2018-08-27] MEDS: LORATADINE 10MG TABLET PO SCH (08:38)
[2018-08-27] MEDS: APIXABAN 5 MG TABLET PO SCH ×2 (08:38→17:39)
[2018-08-27] MEDS: ASPIRIN 81MG TABLET PO SCH (08:38)
[2018-08-27] MEDS: DILTIAZEM HCL 30MG TABLET PO SCH ×2 (08:39→21:00)
[2018-08-27] MEDS: GUAIFENESIN 600MG ER TABLET PO SCH ×2 (08:39→21:43)
[2018-08-27 11:10] LABS: CHLORIDE 101 mEq/L (98-107)
[2018-08-27 12:00] VITALS: BP 90/59
[2018-08-27 15:41] VITALS: BP 97/55
[2018-08-27] MEDS: DIGOXIN 125MCG TABLET PO SCH (17:39)
[2018-08-27] MEDS: MONTELUKAST SODIUM 10MG TABLET PO SCH (17:39)
[2018-08-27] MEDS: CEFTRIAXONE 2 G in DEXTROSE 5% WATER 50 ML IV SCH (17:58)
[2018-08-27 20:43] VITALS: BP 104/69
[2018-08-27] MEDS: INSULIN GLARGINE UD 100 UNITS/ML SYR SUBCUT SCH (22:01)
[2018-08-28] VITALS: BP 119/51
[2018-08-28] MEDS: IPRATROPIUM/ALBUTEROL 0.5-3(2.5)MG/3ML NEB HHN SCH ×6 (00:21→20:46)
[2018-08-28 04:00] VITALS: BP 127/57
[2018-08-28] MEDS: INSULIN LISPRO 100 UNITS/ML SUBCUT SCH ×5 (06:32→22:26)
[2018-08-28] MEDS: BLOOD SUGAR DIAGNOSTIC STRIP TEST SCH ×4 (06:32→21:00)
[2018-08-28 08:00] VITALS: BP 119/57
[2018-08-28] MEDS: APIXABAN 5 MG TABLET PO SCH ×2 (08:34→17:47)
[2018-08-28] MEDS: DILTIAZEM HCL 30MG TABLET PO SCH ×2 (08:34→21:00)
[2018-08-28] MEDS: LORATADINE 10MG TABLET PO SCH (08:34)
[2018-08-28] MEDS: ASPIRIN 81MG TABLET PO SCH (08:34)
[2018-08-28] MEDS: FAMOTIDINE 20MG/2ML VIAL IV SCH (08:34)
[2018-08-28] MEDS: METHYLPREDNISOLONE SOD SUCC 40 MG/ML VIAL IV SCH (08:34)
[2018-08-28] MEDS: GUAIFENESIN 600MG ER TABLET PO SCH ×2 (08:34→22:24)
[2018-08-28 12:00] VITALS: BP 106/50
[2018-08-28] MEDS ORDERED: FUROSEMIDE 40MG/4ML VIAL IVP NR (17:45)
[2018-08-28] MEDS: MONTELUKAST SODIUM 10MG TABLET PO SCH (17:47)
[2018-08-28] MEDS: DIGOXIN 125MCG TABLET PO SCH (17:47)
[2018-08-28] MEDS: CEFTRIAXONE 2 G in DEXTROSE 5% WATER 50 ML IV SCH (17:48)
[2018-08-28 17:58] LABS: BG BASE EXCESS -0.8 mmol/L (-2.0-2.0); BG CARBOXYHEMOGLOBIN 0.5 % (0.5-1.5); BG DEOXYHEMOGLOBIN 2.1 % (0.0-5.0); BG HCO3 ACT 22.3 mmol/L (22.0-26.0); BG METHEMOGLOBIN 0.3 % (0.0-1.5); BG OXYGEN SATURATION 97.9 % (92.0-98.5); BG OXYHEMOGLOBIN 97.1 % (94.0-97.0); BG PCO2 31.9 mmHg (35.0-45.0); BG PH 7.463 (7.350-7.450); BG PO2 114.7 mmHg (75.0-100.0); BG SAMPLE SITE LEFT BRACHIAL; BG TOTAL HEMOGLOBIN 11.9 g/dL (12.0-18.0); BG VENT MODE NASAL CANNULA
[2018-08-28 20:00] VITALS: BP 108/70
[2018-08-28] MEDS: INSULIN GLARGINE UD 100 UNITS/ML SYR SUBCUT SCH (22:25)
[2018-08-29] VITALS: BP 99/55
[2018-08-29] MEDS: IPRATROPIUM/ALBUTEROL 0.5-3(2.5)MG/3ML NEB HHN SCH ×7 (00:16→23:48)
[2018-08-29 04:00] VITALS: BP 122/60
[2018-08-29] MEDS: BLOOD SUGAR DIAGNOSTIC STRIP TEST SCH ×3 (06:08→21:00)
[2018-08-29] MEDS: INSULIN LISPRO 100 UNITS/ML SUBCUT SCH ×4 (06:08→22:04)
[2018-08-29 07:29] LABS: HEMATOCRIT. 36.2 % (42.0-52.0); HEMOGLOBIN. 12.2 g/dL (14.0-18.0); MEAN CORPUSCULAR HEMOGLOBIN 31.1 pg (28.0-32.0); MEAN CORPUSCULAR VOLUME 92.6 fL (80.0-94.0); MEAN PLATELET VOLUME 7.8 fl (7.4-10.4); PLATELET 122 x1000/uL (130-400); RED BLOOD CELL COUNT 3.91 mill/uL (4.7-6.1); RED CELL DISTRIBUTION WIDTH 15.5 % (11.6-14.6)
[2018-08-29 07:58] LABS: CHLORIDE 100 mEq/L (98-107)
[2018-08-29 08:00] VITALS: BP 94/49
[2018-08-29] MEDS: FAMOTIDINE 20MG/2ML VIAL IV SCH (10:04)
[2018-08-29] MEDS: ASPIRIN 81MG TABLET PO SCH (10:05)
[2018-08-29] MEDS: METHYLPREDNISOLONE SOD SUCC 40 MG/ML VIAL IV SCH (10:05)
[2018-08-29] MEDS: LORATADINE 10MG TABLET PO SCH (10:05)
[2018-08-29] MEDS: DILTIAZEM HCL 30MG TABLET PO SCH ×3 (10:06→22:06)
[2018-08-29 12:00] VITALS: BP 124/58
[2018-08-29 13:16] LABS: PLATELET ESTIMATE SLIGHTLY DECREASED
[2018-08-29] MEDS: APIXABAN 5 MG TABLET PO SCH ×2 (13:49→19:00)
[2018-08-29] MEDS: GUAIFENESIN 600MG ER TABLET PO SCH ×2 (13:50→22:01)
[2018-08-29 16:00] VITALS: BP 94/58
[2018-08-29] MEDS: MONTELUKAST SODIUM 10MG TABLET PO SCH (17:59)
[2018-08-29] MEDS: DIGOXIN 125MCG TABLET PO SCH (17:59)
[2018-08-29] MEDS: CEFTRIAXONE 2 G in DEXTROSE 5% WATER 50 ML IV SCH (19:30)
[2018-08-29 20:00] VITALS: BP 129/96
[2018-08-29] MEDS: INSULIN GLARGINE UD 100 UNITS/ML SYR SUBCUT SCH (22:04)
[2018-08-30] VITALS: BP 103/61
[2018-08-30 04:00] VITALS: BP 118/64
[2018-08-30] MEDS: IPRATROPIUM/ALBUTEROL 0.5-3(2.5)MG/3ML NEB HHN SCH ×5 (04:40→21:38)
[2018-08-30 06:47] LABS: HEMATOCRIT. 34.3 % (42.0-52.0); HEMOGLOBIN. 11.9 g/dL (14.0-18.0); MEAN CORPUSCULAR HEMOGLOBIN 31.9 pg (28.0-32.0); MEAN CORPUSCULAR VOLUME 92.3 fL (80.0-94.0); MEAN PLATELET VOLUME 7.7 fl (7.4-10.4); PLATELET 105 x1000/uL (130-400); RED BLOOD CELL COUNT 3.72 mill/uL (4.7-6.1); RED CELL DISTRIBUTION WIDTH 15.2 % (11.6-14.6)
[2018-08-30 06:58] LABS: CHLORIDE 101 mEq/L (98-107)
[2018-08-30] MEDS: BLOOD SUGAR DIAGNOSTIC STRIP TEST SCH ×4 (07:11→21:16)
[2018-08-30] MEDS: INSULIN LISPRO 100 UNITS/ML SUBCUT SCH ×4 (07:15→21:16)
[2018-08-30 08:00] VITALS: BP 107/56
[2018-08-30] MEDS: LORATADINE 10MG TABLET PO SCH (08:53)
[2018-08-30] MEDS: GUAIFENESIN 600MG ER TABLET PO SCH ×2 (08:53→21:15)
[2018-08-30] MEDS: DILTIAZEM HCL 30MG TABLET PO SCH ×3 (08:53→21:00)
[2018-08-30] MEDS: FAMOTIDINE 20MG/2ML VIAL IV SCH (08:54)
[2018-08-30] MEDS: ASPIRIN 81MG TABLET PO SCH (08:54)
[2018-08-30] MEDS: APIXABAN 5 MG TABLET PO SCH ×2 (08:54→18:03)
[2018-08-30] MEDS: METHYLPREDNISOLONE SOD SUCC 40 MG/ML VIAL IV SCH (08:54)
[2018-08-30 12:00] VITALS: BP 124/82
[2018-08-30 14:18] LABS: PLATELET ESTIMATE SLIGHTLY DECREASED
[2018-08-30] MEDS: PREDNISONE 20MG TABLET PO SCH (14:58)
[2018-08-30 15:15] LABS: BG BASE EXCESS 2.6 mmol/L (-2.0-2.0); BG CARBOXYHEMOGLOBIN 0.9 % (0.5-1.5); BG DEOXYHEMOGLOBIN 5.1 % (0.0-5.0); BG FRACTION INSPIRED OXYGEN 21; BG HCO3 ACT 25.9 mmol/L (22.0-26.0); BG METHEMOGLOBIN 0.2 % (0.0-1.5); BG OXYGEN SATURATION 94.8 % (92.0-98.5); BG OXYHEMOGLOBIN 93.8 % (94.0-97.0); BG PCO2 35.2 mmHg (35.0-45.0); BG PH 7.484 (7.350-7.450); BG PO2 74.3 mmHg (75.0-100.0); BG SAMPLE SITE LEFT BRACHIAL; BG TOTAL HEMOGLOBIN 12.4 g/dL (12.0-18.0); BG VENT MODE ROOM AIR
[2018-08-30 16:00] VITALS: BP 116/73
[2018-08-30] MEDS: MONTELUKAST SODIUM 10MG TABLET PO SCH (18:03)
[2018-08-30] MEDS: DIGOXIN 125MCG TABLET PO SCH (18:03)
[2018-08-30] MEDS: CEFTRIAXONE 2 G in DEXTROSE 5% WATER 50 ML IV SCH (18:03)
[2018-08-30 20:00] VITALS: BP 103/63
[2018-08-30] MEDS: INSULIN GLARGINE UD 100 UNITS/ML SYR SUBCUT SCH (21:38)
[2018-08-31] VITALS: BP 96/59
[2018-08-31] MEDS: IPRATROPIUM/ALBUTEROL 0.5-3(2.5)MG/3ML NEB HHN SCH ×5 (00:55→20:17)
[2018-08-31 04:00] VITALS: BP 115/73
[2018-08-31] MEDS: INSULIN LISPRO 100 UNITS/ML SUBCUT SCH ×4 (06:35→21:35)
[2018-08-31] MEDS: BLOOD SUGAR DIAGNOSTIC STRIP TEST SCH ×4 (06:35→21:30)
[2018-08-31 06:51] LABS: HEMATOCRIT 36.6 % (42.0-52.0); HEMOGLOBIN 12.4 g/dL (14.0-18.0); MEAN CORPUSCULAR HEMOGLOBIN 31.4 pg (28.0-32.0); MEAN CORPUSCULAR VOLUME 92.6 fL (80.0-94.0); PLATELET 108 x1000/uL (130-400); RED BLOOD CELL COUNT 3.96 mill/uL (4.7-6.1); RED CELL DISTRIBUTION WIDTH 15.3 % (11.6-14.6)
[2018-08-31 07:29] LABS: CHLORIDE 100 mEq/L (98-107)
[2018-08-31 08:00] VITALS: BP 115/68
[2018-08-31] MEDS: GUAIFENESIN 600MG ER TABLET PO SCH ×2 (09:19→21:20)
[2018-08-31] MEDS: ASPIRIN 81MG TABLET PO SCH (09:20)
[2018-08-31] MEDS: APIXABAN 5 MG TABLET PO SCH ×2 (09:20→17:14)
[2018-08-31] MEDS: PREDNISONE 20MG TABLET PO SCH (09:20)
[2018-08-31] MEDS: LORATADINE 10MG TABLET PO SCH (09:20)
[2018-08-31] MEDS: DILTIAZEM HCL 30MG TABLET PO SCH ×2 (09:20→21:30)
[2018-08-31] MEDS: FAMOTIDINE 20MG/2ML VIAL IV SCH (09:22)
[2018-08-31 12:00] VITALS: BP 97/54
[2018-08-31 16:00] VITALS: BP 106/51
[2018-08-31] MEDS: DIGOXIN 125MCG TABLET PO SCH (17:14)
[2018-08-31] MEDS: MONTELUKAST SODIUM 10MG TABLET PO SCH (17:16)
[2018-08-31 20:00] VITALS: BP 133/59
[2018-08-31] MEDS: INSULIN GLARGINE UD 100 UNITS/ML SYR SUBCUT SCH (21:36)
[2018-09-01] VITALS: BP 123/62
[2018-09-01] MEDS: IPRATROPIUM/ALBUTEROL 0.5-3(2.5)MG/3ML NEB HHN SCH ×5 (00:31→16:16)
[2018-09-01 04:00] VITALS: BP 139/68
[2018-09-01] MEDS: BLOOD SUGAR DIAGNOSTIC STRIP TEST SCH ×3 (06:49→17:06)
[2018-09-01] MEDS: INSULIN LISPRO 100 UNITS/ML SUBCUT SCH ×3 (07:09→17:15)
[2018-09-01 07:42] LABS: HEMATOCRIT 34.6 % (42.0-52.0); HEMOGLOBIN 11.9 g/dL (14.0-18.0); MEAN CORPUSCULAR VOLUME 93.2 fL (80.0-94.0); PLATELET 94 x1000/uL (130-400); RED BLOOD CELL COUNT 3.71 mill/uL (4.7-6.1); RED CELL DISTRIBUTION WIDTH 15.7 % (11.6-14.6)
[2018-09-01 07:48] LABS: CHLORIDE 100 mEq/L (98-107)
[2018-09-01 08:00] VITALS: BP 102/47
[2018-09-01] MEDS: GUAIFENESIN 600MG ER TABLET PO SCH (09:22)
[2018-09-01] MEDS: FAMOTIDINE 20MG/2ML VIAL IV SCH (09:22)
[2018-09-01] MEDS: ASPIRIN 81MG TABLET PO SCH (09:23)
[2018-09-01] MEDS: DILTIAZEM HCL 30MG TABLET PO SCH (09:23)
[2018-09-01] MEDS: APIXABAN 5 MG TABLET PO SCH ×2 (09:23→18:46)
[2018-09-01] MEDS: PREDNISONE 20MG TABLET PO SCH (09:24)
[2018-09-01] MEDS: LORATADINE 10MG TABLET PO SCH (09:24)
[2018-09-01 12:00] VITALS: BP 95/46
[2018-09-01 16:00] VITALS: BP 100/40
[2018-09-01 17:30] VITALS: BP 100/70
[2018-09-01] MEDS: MONTELUKAST SODIUM 10MG TABLET PO SCH (18:52)
[2018-09-01] MEDS: DIGOXIN 125MCG TABLET PO SCH (18:52)
[2018-09-01] MEDS ORDERED: INSULIN GLARGINE UD 100 UNITS/ML SYR SUBCUT SCH (22:00)
[2018-09-03] MEDS ORDERED: PREDNISONE 20MG TABLET PO SCH (09:00)
[2018-09-07] MEDS ORDERED: PREDNISONE 10MG TABLET PO SCH (09:00)
== END 2018-09-01 19:15 | DRG 871 ==
LOC: ER 10:28 → EDBEDREQSVC 12:12 → EDBEDREQ 12:12 → EDBEDREQTM 12:12 → EDBEDREQ 12:15 → ENRESERV 13:40 → CANRESERV 13:43 → 3WST 15:20 → CVICU 08-15 15:45 → 5EST 08-16 22:40 → 6EST 08-21 15:06 → 5WST 08-23 15:48
PROVIDERS: ADMIT Internal Medicine; ATTEND Internal Medicine
PROC: 5A09357 Assistance with Respiratory Ventilation, Less than 24 Consecutive Hours, Continuous Positive Airway Pressure (ICD-10-PCS; 2018-08-15)
PROC: 5A09357 Assistance with Respiratory Ventilation, Less than 24 Consecutive Hours, Continuous Positive Airway Pressure (ICD-10-PCS; 2018-08-17)
PROC: 02HV33Z Insertion of Infusion Device into Superior Vena Cava, Percutaneous Approach (ICD-10-PCS; principal; 2018-08-18)
PROC: B548ZZA Ultrasonography of Superior Vena Cava, Guidance (ICD-10-PCS; 2018-08-18)
PROC: 5A09357 Assistance with Respiratory Ventilation, Less than 24 Consecutive Hours, Continuous Positive Airway Pressure (ICD-10-PCS; 2018-08-18)
PROC: 5A09357 Assistance with Respiratory Ventilation, Less than 24 Consecutive Hours, Continuous Positive Airway Pressure (ICD-10-PCS; 2018-08-20)
PROC: 5A09357 Assistance with Respiratory Ventilation, Less than 24 Consecutive Hours, Continuous Positive Airway Pressure (ICD-10-PCS; 2018-08-22)
PROC: 5A09357 Assistance with Respiratory Ventilation, Less than 24 Consecutive Hours, Continuous Positive Airway Pressure (ICD-10-PCS; 2018-08-23)
PROC: 5A09357 Assistance with Respiratory Ventilation, Less than 24 Consecutive Hours, Continuous Positive Airway Pressure (ICD-10-PCS; 2018-08-24)
PROC: 5A09357 Assistance with Respiratory Ventilation, Less than 24 Consecutive Hours, Continuous Positive Airway Pressure (ICD-10-PCS; 2018-08-25)
PROC: 5A09357 Assistance with Respiratory Ventilation, Less than 24 Consecutive Hours, Continuous Positive Airway Pressure (ICD-10-PCS; 2018-08-27)
PROC: 5A09357 Assistance with Respiratory Ventilation, Less than 24 Consecutive Hours, Continuous Positive Airway Pressure (ICD-10-PCS; 2018-08-28)
PROC: 5A09357 Assistance with Respiratory Ventilation, Less than 24 Consecutive Hours, Continuous Positive Airway Pressure (ICD-10-PCS; 2018-08-29)
PROC: 5A09357 Assistance with Respiratory Ventilation, Less than 24 Consecutive Hours, Continuous Positive Airway Pressure (ICD-10-PCS; 2018-08-30)
DX: A41.9 Sepsis, unspecified organism (principal); I21.4 Non-ST elevation (NSTEMI) myocardial infarction; J96.02 Acute respiratory failure with hypercapnia; J13 Pneumonia due to Streptococcus pneumoniae; I63.9 Cerebral infarction, unspecified; J44.1 Chronic obstructive pulmonary disease with (acute) exacerbation; J44.0 Chronic obstructive pulmonary disease with (acute) lower respiratory infection; N17.9 Acute kidney failure, unspecified; D68.59 Other primary thrombophilia; I42.9 Cardiomyopathy, unspecified; I47.1 Supraventricular tachycardia; I13.0 Hypertensive heart and chronic kidney disease with heart failure and stage 1 through stage 4 chronic kidney disease, or unspecified chronic kidney disease; D69.6 Thrombocytopenia, unspecified; I50.9 Heart failure, unspecified; B95.3 Streptococcus pneumoniae as the cause of diseases classified elsewhere; D64.9 Anemia, unspecified; E11.9 Type 2 diabetes mellitus without complications; I35.0 Nonrheumatic aortic (valve) stenosis; I48.2 Chronic atrial fibrillation; T38.0X5A Adverse effect of glucocorticoids and synthetic analogues, initial encounter; N18.9 Chronic kidney disease, unspecified; H54.40 Blindness, one eye, unspecified eye; Z86.73 Personal history of transient ischemic attack (TIA), and cerebral infarction without residual deficits; Z87.891 Personal history of nicotine dependence; Z99.81 Dependence on supplemental oxygen; Y92.89 Other specified places as the place of occurrence of the external cause
CPT/HCPCS: 36415; 36569; 36600; 70490; 70551; 71045; 71250; 76770; 76937; 78580; 80048; 80061; 80162; 80305; 82375; 82805; 82962; 83036; 83605; 83735; 83880; 84145; 84153; 84443; 84484; 85027; 87077; 87186; 87804; 92610; 93005; 93306; 93880; 93970; 93971; 94640; 94660; 96365; 96375; 97116; 97162; 97164; 99285; A6261; C1725; J0696; J1160; J1650; J1815; J1940; J2543; J2920; J2930; J3370; J3490; J7030; J7040; J7050; J7060; J7512; J7608; J7611; J7620; J7626; G0103